=== PATIENT | male | born 1940 | race African-American/Black ===

== ENCOUNTER 2017-07-26 23:32 | Inpatient (IN) ==
[2017-07-27] MEDS ORDERED: ONDANSETRON 4 MG/2 ML VIAL IV STA (00:03)
[2017-07-27] MEDS ORDERED: PANTOPRAZOLE INJ 80 MG in SODIUM CHLORIDE 0.9% 100 ML IV STA (00:03)
[2017-07-27] MEDS ORDERED: SODIUM CHLORIDE 0.9% 1,000 ML IV STA (00:03)
[2017-07-27] MEDS ORDERED: ONDANSETRON 4 MG/2 ML VIAL ONE ×2 (00:24→12:45)
[2017-07-27] MEDS ORDERED: PANTOPRAZOLE 40 MG VIAL IV ONE (00:24)
[2017-07-27 00:26] LABS: Basophils # 0.1 10*3/uL (0.0-0.2); Basophils % 0.3 % (0.0-0.8); Eosinophils # 0.1 10*3/uL (0.0-0.87); Eosinophils % 0.9 % (0.00-10.9); Hematocrit 35.7 VOL% (42.0-52.0); Hemoglobin 12.4 GM/DL (14.0-18.0); Immature Granulocytes % 0.6 %; Immature Granulocytes Absolute 0.09 #; Lymphocytes # 2.2 10*3/uL (1.4-4.0); Lymphocytes % 14.9 % (21.2-54.2); Mean Corpuscular HGB Conc 34.7 GM/DL (32-36); Mean Corpuscular Hemoglobin 32 PG (27-34); Mean Corpuscular Volume 91.8 FL (87-102); Mean Platelet Volume 9.2 FL (9.6-12.0); Monocytes % 6.7 % (1.7-12.7); Neutrophils # 11.1 10*3/uL (1.4-7.4); Neutrophils % 76.6 % (38.7-73.9); Platelet Count 322 T/CUMM (130-400); Red Blood Count 3.89 MC/CUMM (3.8-5.5); Red Cell Distribution Width 12.2 % (9.3-17.3); White Blood Count 14.6 T/CUMM (4-12)
[2017-07-27 00:33] LABS: INR 1.1; PT Patient Result 11.5 SECS; Partial Thromboplastin Time 23.8 SECS (0-40)
[2017-07-27 00:50] LABS: Albumin 3.6 G/DL (3.4-5.0); Bilirubin,Total 0.6 MG/DL (0.2-1.0); Calcium 9.5 MG/DL (8.5-10.1); Osmolality,Calculated 274.4 MOS/KG (273-304); Potassium 3.6 MMOL/L (3.5-5.1); Total Protein 7.4 G/DL (6.4-8.3)
[2017-07-27] MEDS: PANTOPRAZOLE INJ 200 MG in SODIUM CHLORIDE 0.9% 250 ML IV SCH (02:14)
[2017-07-27] MEDS ORDERED: MORPHINE 2 MG/1 ML SYRINGE ONE ×2 (03:12→12:45)
[2017-07-27] MEDS: MORPHINE 2 MG/1 ML SYRINGE IV PRN ×3 (03:18→21:40)
[2017-07-27] MEDS: SODIUM CHLORIDE 0.9% 1,000 ML IV SCH ×2 (03:18→16:10)
[2017-07-27] MEDS: ONDANSETRON 4 MG/2 ML VIAL IV PRN ×2 (03:19→12:53)
[2017-07-27 04:02] LABS: Apearance,Urine Slightly Hazy (Clear); Bacteria,Urine Few /HPF (Few); Bilirubin,Urine Negative (Negative); Blood, Urine Large mg/dL (Negative); Glucose,Urine (UA) Negative (Negative); Ketones,Urine Negative (Negative); Mucus,Urine Occasional /LPF (Occasional); Nitrite,Urine Negative (Negative); Protein,Urine 30 MG/DL; RBC,Urine 644 /HPF (0-4); Squamous Epithelial Cell,Urine Occasional /HPF (0-10); Urine Color Yellow (Yellow); Urine Specific Gravity 1.016 (1.001-1.035); Urine Urobilinogen < 2.0 EU/DL (0.2-1.0); WBC,Urine 108 /HPF (0-6)
[2017-07-27 04:08] LABS: Barbiturates Screen,Urine Negative (Negative); Benzodiazepines Screen,Urine Negative (Negative); Cannabinoid Screen,Urine Positive (Negative); Opiate Screen,Urine Negative (Negative); Phencyclidine Screen,Urine Negative (Negative)
[2017-07-27 05:09] LABS: Hematocrit 31.8 VOL% (42.0-52.0); Hemoglobin 11.1 GM/DL (14.0-18.0)
[2017-07-27 09:58] LABS: Hematocrit 32.1 VOL% (42.0-52.0); Hemoglobin 11.1 GM/DL (14.0-18.0)
[2017-07-27] MEDS ORDERED: cefTRIAXone 1,000 MG VIAL ONE (12:38)
[2017-07-27] MEDS: cefTRIAXone 1,000 MG in SYRINGE 1 EACH IV SCH (12:53)
[2017-07-27 16:47] LABS: Hematocrit 29.8 VOL% (42.0-52.0); Hemoglobin 10.3 GM/DL (14.0-18.0)
[2017-07-27 18:24] LABS: Apearance,Urine Slightly Hazy (Clear); Bilirubin,Urine Negative (Negative); Blood, Urine Large mg/dL (Negative); Glucose,Urine (UA) Negative (Negative); Ketones,Urine Negative (Negative); Nitrite,Urine Negative (Negative); Protein,Urine 30 MG/DL; RBC,Urine 344 /HPF (0-4); Urine Color Yellow (Yellow); Urine Specific Gravity 1.013 (1.001-1.035); Urine Urobilinogen < 2.0 EU/DL (0.2-1.0); WBC,Urine 203 /HPF (0-6)
[2017-07-27] MEDS: FINASTERIDE 5 MG TABLET PO SCH (21:35)
[2017-07-27] MEDS: CARVEDILOL 12.5 MG TABLET PO SCH (21:36)
[2017-07-27 22:24] LABS: Hematocrit 28.2 VOL% (42.0-52.0); Hemoglobin 9.8 GM/DL (14.0-18.0)
[2017-07-28] MEDS: SODIUM CHLORIDE 0.9% 1,000 ML IV SCH ×3 (00:20→21:29)
[2017-07-28] MEDS: MORPHINE 2 MG/1 ML SYRINGE IV PRN ×2 (04:04→21:29)
[2017-07-28 04:29] LABS: Basophils % 0.6 % (0.0-0.8); Eosinophils # 0.1 10*3/uL (0.0-0.87); Eosinophils % 1.3 % (0.00-10.9); Hematocrit 30.1 VOL% (42.0-52.0); Hemoglobin 10.3 GM/DL (14.0-18.0); Immature Granulocytes % 0.2 %; Immature Granulocytes Absolute 0.01 #; Lymphocytes # 1.6 10*3/uL (1.4-4.0); Lymphocytes % 29.5 % (21.2-54.2); Mean Corpuscular HGB Conc 34.2 GM/DL (32-36); Mean Corpuscular Hemoglobin 32 PG (27-34); Mean Corpuscular Volume 92.6 FL (87-102); Mean Platelet Volume 9.4 FL (9.6-12.0); Monocytes # 0.7 10*3/uL (0.11-0.8); Monocytes % 13.6 % (1.7-12.7); Neutrophils # 2.9 10*3/uL (1.4-7.4); Neutrophils % 54.8 % (38.7-73.9); Platelet Count 295 T/CUMM (130-400); Red Blood Count 3.25 MC/CUMM (3.8-5.5); Red Cell Distribution Width 12.4 % (9.3-17.3); White Blood Count 5.4 T/CUMM (4-12)
[2017-07-28 04:35] LABS: Calcium 8.8 MG/DL (8.5-10.1); Osmolality,Calculated 276.7 MOS/KG (273-304); Potassium 3.6 MMOL/L (3.5-5.1)
[2017-07-28] MEDS: PANTOPRAZOLE INJ 200 MG in SODIUM CHLORIDE 0.9% 250 ML IV SCH (05:36)
[2017-07-28] MEDS: amLODIPine 10 MG TABLET PO SCH (09:40)
[2017-07-28] MEDS: FINASTERIDE 5 MG TABLET PO SCH ×2 (09:40→21:29)
[2017-07-28] MEDS: LOSARTAN 50 MG TABLET PO SCH (09:40)
[2017-07-28] MEDS: cefTRIAXone 1,000 MG in SYRINGE 1 EACH IV SCH (09:40)
[2017-07-28] MEDS: CARVEDILOL 12.5 MG TABLET PO SCH ×2 (09:40→21:29)
[2017-07-28] MEDS ORDERED: PROPOFOL 200 MG/20 ML VIAL IV ONE (11:37)
[2017-07-28] MEDS ORDERED: LIDOCAINE 1% 5 ML VIAL ONE (11:37)
[2017-07-28 12:47] LABS: Hematocrit 30.6 VOL% (42.0-52.0); Hemoglobin 10.2 GM/DL (14.0-18.0)
[2017-07-28] MEDS: FLUCONAZOLE 100 MG TABLET PO SCH (16:39)
[2017-07-29] MEDS: SODIUM CHLORIDE 0.9% 1,000 ML IV SCH ×3 (02:44→16:20)
[2017-07-29] MEDS: FLUCONAZOLE 100 MG TABLET PO SCH (08:14)
[2017-07-29] MEDS: LOSARTAN 50 MG TABLET PO SCH (08:14)
[2017-07-29] MEDS: amLODIPine 10 MG TABLET PO SCH (08:14)
[2017-07-29] MEDS: CARVEDILOL 12.5 MG TABLET PO SCH ×2 (08:14→21:19)
[2017-07-29] MEDS: FINASTERIDE 5 MG TABLET PO SCH ×2 (08:15→21:19)
[2017-07-29] MEDS: MORPHINE 2 MG/1 ML SYRINGE IV PRN ×2 (08:15→13:55)
[2017-07-29] MEDS: PANTOPRAZOLE 40 MG VIAL IV SCH ×2 (09:41→21:18)
[2017-07-30 07:52] VITALS: BP 152/90
[2017-07-30] MEDS: amLODIPine 10 MG TABLET PO SCH (08:23)
[2017-07-30] MEDS: FLUCONAZOLE 100 MG TABLET PO SCH (08:23)
[2017-07-30] MEDS: CARVEDILOL 12.5 MG TABLET PO SCH (08:23)
[2017-07-30] MEDS: LOSARTAN 50 MG TABLET PO SCH (08:23)
[2017-07-30] MEDS: FINASTERIDE 5 MG TABLET PO SCH (08:23)
[2017-07-30] MEDS ORDERED: PANTOPRAZOLE 40 MG TABLET PO SCH (09:00)
== END 2017-07-30 11:39 | disposition home health service (06) | DRG 369 ==
LOC: N.ED 23:32 → SUATTDRO 07-27 02:25 → N.EDINP 07-27 02:25 → N.2E 07-27 14:21
PROVIDERS: ADMIT Internal Medicine Infectious Disease; ATTEND Hospitalist